=== PATIENT | female | born 1960 | race Caucasian/White ===

== ENCOUNTER 2017-10-13 01:36 | Emergency (ER) | payer OTHER ==
[~2017-10-13] VITALS: Ht 157.5 cm; Wt 62.2 kg
--- NOTE | 2017-10-13 19:23 | EKG ---
[facility] [address] [facility] [place] [address] Signed Sinus tachycardia Otherwise normal ECG No previous ECGs available Confirmed by DERICK JARAMILLO MD ([id number] on 10/13/2017 7:23:10 PM Electronically Signed By: DERICK JARAMILLO MD 10/13/17 1923 PATIENT NAME: LANEY MARTIN Electrocardiogram DATE OF : 60 PHYSICIAN: DERICK JARAMILLO MD REPORT #: [id number] REPORT IS CONFIDENTIAL AND NOT TO BE RELEASED WITHOUT AUTHORIZATION
== END 2017-10-13 02:29 | disposition home or self-care (01) ==
LOC: ED 01:36
DX: R07.89 Other chest pain (principal); F10.129 Alcohol abuse with intoxication, unspecified; F17.200 Nicotine dependence, unspecified, uncomplicated; Z88.5 Allergy status to narcotic agent
CPT/HCPCS: 93005; 93010; 99283